=== PATIENT | male | born 1965 | race Caucasian/White ===

== ENCOUNTER 2016-06-04 09:32 | Outpatient (CLI) | payer OTHER ==
[2016-06-04 18:05] LABS: Testosterone, Free 136.6 pg/mL (47-244)
== END 2016-06-04 09:33 | disposition home or self-care (01) ==
LOC: NAVSJIPCSP 09:32
PROVIDERS: ATTEND Internal Medicine
DX: E29.1 Testicular hypofunction (principal)
CPT/HCPCS: 36415; 84270; 84403

== ENCOUNTER 2016-08-10 08:24 | Outpatient (CLI) | payer OTHER ==
[2016-08-10 12:47] LABS: Anion Gap 19 mmol/L (10-20); BUN (Urea Nitrogen) 13 mg/dL (8.4-25.7); Calc. Creatinine Clearance 0 mL/min (70-130); Calcium 9.6 mg/dL (7.8-10.44); Carbon Dioxide 22 mmol/L (22-29); Chloride 104 mmol/L (98-107); Estimated GFR-MDRD 63; Glucose 123 mg/dL (70-105); Potassium 3.9 mmol/L (3.5-5.1); Sodium 141 mmol/L (136-145)
== END 2016-08-10 08:25 | disposition home or self-care (01) ==
LOC: NAVSJIPCSP 08:24
PROVIDERS: ATTEND Internal Medicine
DX: E78.5 Hyperlipidemia, unspecified (principal); I10 Essential (primary) hypertension; R60.0 Localized edema
CPT/HCPCS: 36415; 80048; 83880

== ENCOUNTER 2017-03-17 09:12 | Outpatient (CLI) | payer OTHER ==
--- NOTE | 2017-03-17 10:06 | RAD ---
TWO VIEW CHEST: Comparison: None. Indication: Cough. FINDINGS: No consolidation, effusion, or pneumothorax. The cardiac silhouette is normal in size. Osseous struc tures within alignment with degenerative change. IMPRESSION: No focal consolidation. POS: NABIL
== END 2017-03-17 09:13 | disposition home or self-care (01) ==
LOC: NAV RAD 09:12
PROVIDERS: ATTEND Internal Medicine
DX: R05 Cough (principal)
CPT/HCPCS: 71020